=== PATIENT | male | born 1970 | race Two or more races ===

== ENCOUNTER 2022-04-25 00:08 | Emergency (ER) | payer BC ==
[~2022-04-25] VITALS: Ht 180.3 cm; Wt 220.0 kg
[2022-04-25 03:02] LABS: Acetaminophen < 2.0 ug/mL (10-30); Salicylate 2.3 mg/dL (2.8-20.0)
[2022-04-25] MEDS ORDERED: cloNIDine HCL 0.1 MG TAB PO ONE (03:30)
[2022-04-25 04:35] LABS: Alcohol, Urine < 3.0 mg/dL (0-10); Amphetamine Screen, Urine NEGATIVE (NEGATIVE); Barbiturate Scree,Urine NEGATIVE (NEGATIVE); Benzodiazephine Screen, Urine NEGATIVE (NEGATIVE); Cannabinoid Screen, Urine NEGATIVE (NEGATIVE); Cocaine Screen, Urine NEGATIVE (NEGATIVE); Opiate Scree,Urine NEGATIVE (NEGATIVE); Phencyclidine Screen, Urine NEGATIVE (NEGATIVE)
[2022-04-25] MEDS ORDERED: OLANZapine 5 MG TAB PO SCH (10:00)
[2022-04-25] MEDS ORDERED: DIVA500T2 PO (12:18)
[2022-04-25] MEDS ORDERED: OLAN10TA PO (12:18)
[2022-04-25 12:36] VITALS: BP 195/91
== END 2022-04-25 13:21 | disposition home or self-care (01) ==
LOC: ER 00:08
DX: R45.851 Suicidal ideations (principal); I16.0 Hypertensive urgency
CPT/HCPCS: 36415; 80307; 80320; 80329